=== PATIENT | male | born 1995 | race Caucasian/White ===

== ENCOUNTER → 2017-09-25 | Outpatient (CLI) | payer OTHER ==
[~2017-09-25] MED LIST: AGM875T PO; CEPH500C PO; DICY20TA57 PO; HYDR-3720 PO; HYDR-3730 PO; PANT40TA2 PO; SUCR1TAB36 PO
--- NOTE | 2017-09-25 13:19 | Diagnostic Imaging Report ---
INDICATION: Fall with shoulder pain. Three views of the right shoulder were obtained. FINDINGS: The alignment is normal. There is no fracture or dislocation. Right lung is clear. Soft tissues are unremarkable. IMPRESSION: No focal abnormality in the right shoulder. Dictated by: Dictated on workstation # [id number]
== END ==
LOC: RAD 12:47
PROVIDERS: ATTEND Internal Medicine
DX: S46.001A Unspecified injury of muscle(s) and tendon(s) of the rotator cuff of right shoulder, initial encounter (principal); W19.XXXA Unspecified fall, initial encounter
CPT/HCPCS: 73030

== ENCOUNTER → 2017-10-10 | Outpatient (CLI) | payer OTHER ==
--- NOTE | 2017-10-10 08:50 | Diagnostic Imaging Report ---
PROCEDURE: MRI right joint upper extremity without contrast. TECHNIQUE: Multiplanar, multisequence non contrast-enhanced MRI of the right upper extremity was accomplished. INDICATION: Fall in August 2017 with continued right shoulder pain. No prior studies are available for comparison. The biceps tendon is in a normal location within the bicipital groove. The glenohumeral and acromioclavicular alignment are normal. The subscapularis tendon of the rotator cuff appears to be intact. The supraspinatus and infraspinatus tendons of the rotator cuff are intact. No tear or retraction of the cuff is identified. No fluid is identified within the subacromial subdeltoid bursa. There is very minimal intermediate signal noted within the substance of the infraspinatus tendon suggestive of very mild tendinosis. The labrum is difficult to evaluate without intra-articular contrast but appears grossly unremarkable. IMPRESSION: Mild infraspinatus tendinosis. There is no evidence of a rotator cuff tear or retraction. Dictated by: Dictated on workstation # [id number]
== END ==
LOC: RAD 07:32
PROVIDERS: ATTEND Internal Medicine
DX: M75.91 Shoulder lesion, unspecified, right shoulder (principal); W19.XXXA Unspecified fall, initial encounter
CPT/HCPCS: 73221